=== PATIENT | male | born 1970 | race Caucasian/White ===

== ENCOUNTER 2020-04-02 14:05 | Emergency (ER) | payer OTHER | END 2020-04-02 17:18 | disposition home or self-care (01) | LOC: ER1 14:05 | DX: M25.551 Pain in right hip (principal); M54.5 Low back pain; F17.290 Nicotine dependence, other tobacco product, uncomplicated; Z87.39 Personal history of other diseases of the musculoskeletal system and connective tissue | CPT/HCPCS: 73522; 99283 ==

== ENCOUNTER → 2020-04-11 | Outpatient (CLI) | payer OTHER | LOC: KOH-I 11:04 | DX: R52 Pain, unspecified (principal); M54.5 Low back pain; M47.816 Spondylosis without myelopathy or radiculopathy, lumbar region | CPT/HCPCS: 72100; 73502; 73552 ==

== ENCOUNTER → 2020-04-20 | Outpatient (CLI) | payer OTHER | LOC: EMI 15:48 | DX: M54.5 Low back pain (principal); R52 Pain, unspecified; M51.36 Other intervertebral disc degeneration, lumbar region | CPT/HCPCS: 72148 ==

== ENCOUNTER → 2021-11-01 | Outpatient (CLI) | payer OTHER | LOC: RT 12:08 | DX: I10 Essential (primary) hypertension (principal) | CPT/HCPCS: 71046; 93005 ==